=== PATIENT | male | born 1985 | race Caucasian/White ===

== ENCOUNTER 2018-02-20 19:22 | Emergency (ER) | payer BC, OTHER ==
--- NOTE | 2018-02-20 20:05 | EDM.PDOC ---
ED HPI GENERAL MEDICAL PROBLEM - General Chief Complaint: Wound Recheck Stated Complaint: REWRAP LT HAND Time Seen by Provider: 02/20/18 19:29 Source of Information: Reports: Patient History Limitations: Reports: No Limitations - History of Present Illness INITIAL COMMENTS - FREE TEXT/NARRATIVE: HISTORY AND PHYSICAL: History of present illness: Patient is a 32-year-old male who presents to the emergency room today with complaints of discomfort under his surgical cast. He had a crush injury which resulted in a fracture of his right hand. He had surgery involving pins the second and third digit. Surgery was done in [place] on 02/12/2018. He has not taken the dressing off since surgery. Like his second and third digit are rubbing together and is causing a lot of discomfort. He denies any fever, chills , surgical pain. This follow-up appointment is on 02/27/2018. Review of systems: As per history of present illness and below otherwise all systems reviewed and negative. Past medical history: As per history of present illness and as reviewed below otherwise noncontributory. Surgical history: As per history of present illness and as reviewed below otherwise noncontributory. Social history: No reported history of drug or alcohol abuse. Family history: As per history of present illness and as reviewed below otherwise noncontributory. Physical exam: General: Well-developed and well-nourished 32-year-old male. Alert and oriented. Nontoxic appearing and in no acute distress. HEENT: Atraumatic, normocephalic, pupils reactive, negative for conjunctival pallor or scleral icterus, mucous membranes moist, throat clear, neck supple, nontender, trachea midline. Lungs: Clear to auscultation, breath sounds equal bilaterally, chest nontender. Heart: S1S2, regular, negative for clicks, rubs, or JVD. Abdomen: Soft, nondistended, nontender. Negative for masses or hepatosplenomegaly. Negative for costovertebral tenderness. Pelvis: Stable nontender. Genitourinary: Deferred. Rectal: Deferred. Extremities: Known fracture of the right hand which is in a 1/2 cast. Healed suture site to up of second and third medial digit, interrupted sutures, appears to be free of infection. No erythema or drainage noted. 2 pins were placed at the base of the second and third digit. No signs of infection. No erythema or drainage noted. Strong radial pulses bilaterally. Capillary refill less than 3 seconds to affected fingers. Skin between second and third digit does appear moist and irritated from being [id number]. Neurovascular unremarkable. Neuro: Awake, alert, oriented. Cranial nerves II through XII unremarkable. Cerebellum unremarkable. Motor and sensory unremarkable throughout. Exam nonfocal. Notes: 12/03 cast was carefully removed. Will apply a nonstick dressing between the second and third digit. Will reapply the cast splint and secure with ale wrap. Pt is currently on an antibiotic and has pain medication prescribed. I encouraged him to finish both of these. And follow-up with his surgeon as he has scheduled for next . He voices understanding and is agreeable to plan of care. He denies any further questions at this time Diagnostics: [] Therapeutics: Wound care, re-apply splint, bacitracin ointment Impression: Wound re-check Plan: 1. Continue your antibiotic as prescribed. 2. Tylenol and/or ibuprofen as needed for pain management. Rest, ice, elevate the extremity. 3. Follow up with your surgeon as you already have planned for next week. Return to the ED as needed and as discussed. Definitive disposition and diagnosis as appropriate pending reevaluation and review of above. left hand Pain Score (Numeric/FACES): 3 - Related Data Allergies Allergy/AdvReac Type Severity Reaction Status Date / Time acetaminophen [From Vicodin] Allergy Itching Verified 02/20/18 19:52 hydrocodone [From Vicodin] Allergy Itching Verified 02/20/18 19:52 Home Meds: Home Meds Cephalexin 1 tab PO TID 02/20/18 [History] oxyCODONE HCl/Acetaminophen [oxyCODONE-Acetaminophen 5-325] 1 tab PO Q4H PRN [History] ED ROS GENERAL - Review of Systems Review Of Systems: ROS reveals no pertinent complaints other than HPI. ED EXAM, SKIN/RASH Exam: See Below (See dictation) Course - Vital Signs Last Recorded V/S: Last Vital Signs Temp 97.4 F 02/20/18 19:53 Pulse 64 02/20/18 19:53 Resp 18 02/20/18 19:53 BP 125/83 02/20/18 19:53 Pulse Ox 98 02/20/18 19:53 - Orders/Labs/Meds Orders: Active Orders 24 hr Category Date Time Status Communication Order [RC] STAT Care 02/20/18 20:11 Ordered Meds: Medications Discontinued Medications Generic Name Dose Route Start Last Admin Trade Name Annika PRN Reason Stop Dose Admin Bacitracin 1 dose 02/20/18 20:11 Bacitracin Oint 1 Gm TOP 02/20/18 20:12 ONETIME ONE Departure - Departure Time of Disposition: 20:15 Disposition: Home, Self-Care 01 Clinical Impression: Encounter for wound re-check - Discharge Information Referrals: PCP,None [Primary Care Provider] - Forms: ED Department Discharge Additional Instructions: The following information is given to patients seen in the emergency department who are being discharged to home. This information is to outline your options for follow-up care. We provide all patients seen in our emergency department with a follow-up referral. The need for follow-up, as well as the timing and circumstances, are variable depending upon the specifics of your emergency department visit. If you don't have a primary care physician on staff, we will provide you with a referral. We always advise you to contact your personal physician following an emergency department visit to inform them of the circumstance of the visit and for follow-up with them and/or the need for any referrals to a consulting specialist. The emergency department will also refer you to a specialist when appropriate. This referral assures that you have the opportunity for follow-up care with a specialist. All of these measure are taken in an effort to provide you with optimal care, which includes your follow-up. Under all circumstances we always encourage you to contact your private physician who remains a resource for coordinating your care. When calling for follow-up care, please make the office aware that this follow-up is from your recent emergency room visit. If for any reason you are refused follow-up, please contact the [facility] Emergency Department at and asked to speak to the emergency department charge nurse. [facility] Primary Care [facility] [place] [id number] [facility] Specialty Care - Orthopedic Clinic Professional Building [address] [place] [address], [address] [place] [address] 1. Continue your antibiotic as prescribed. 2. Tylenol and/or ibuprofen as needed for pain management. Rest, ice, elevate the extremity. 3. Follow up with your surgeon as you already have planned for next week. Return to the ED as needed and as discussed. - My Orders Last 24 Hours: My Active Orders 02/20/18 20:11 Communication Order [RC] STAT - Assessment/Plan Last 24 Hours: My Active Orders 02/20/18 20:11 Communication Order [RC] STAT
[2018-02-20] MEDS ORDERED: Bacitracin Oint 1 GM U/D Packet TOP ONE (20:11)
== END 2018-02-20 20:50 | disposition home or self-care (01) ==
LOC: MW.ED 19:22
DX: Z46.89 Encounter for fitting and adjustment of other specified devices (principal); S62.92XD Unspecified fracture of left hand, subsequent encounter for fracture with routine healing; Z88.6 Allergy status to analgesic agent; Z88.5 Allergy status to narcotic agent; X58.XXXD Exposure to other specified factors, subsequent encounter
CPT/HCPCS: 99282; 99283